=== PATIENT | female | born 1970 | race Hispanic/Latino ===

== ENCOUNTER 2017-02-15 00:24 | Emergency (ER) | payer SELFPAY ==
--- NOTE | 2017-02-15 03:13 | Emergency Department Report ---
ED Extremity Problem HPI - General Chief complaint: Pain General Stated complaint: FOOT PAIN Time Seen by Provider: 02/15/17 03:13 Source: patient, EMS Mode of arrival: Ambulatory Limitations: No Limitations, Other - History of Present Illness Initial comments: 46-year-old female past medical history hypertension, peripheral neuropathy presents with complaint of chronic bilateral foot neuropathy and request for prescription for foot fungus. Patient is awake alert and oriented 3 appears somewhat disheveled. she is lucid and asking for food upon interview. Patient states that she does not currently have a primary care doctor and just moved to the area. Patient is requesting that I give her all medicines in hand because she does not have money at this time. States she stands on her feet for prolonged periods of time MD Complaint: extremity pain -: year(s) Location: bilateral lower extremity Radiation: none Quality: burning Consistency: constant Improves with: nothing Worsens with: nothing Associated Symptoms: denies other symptoms - Related Data Previous Rx's Medication Instructions Recorded Last Taken Type Ibuprofen [Motrin] 800 mg PO Q8HR PRN #30 tablet 02/15/17 Unknown Rx Menthol [Gold Lora Medicated Foot] 283 gm TP QDAY #1 powder 02/15/17 Unknown Rx Tolnaftate [Tinactin] 150 gm TP QDAY #1 spray 02/15/17 Unknown Rx Allergies Allergy/AdvReac Type Severity Reaction Status Date / Time No Known Allergies Allergy Unverified 02/15/17 00:57 ED Review of Systems ROS: Stated complaint: FOOT PAIN Other details as noted in HPI Constitutional: denies: chills, fever Eyes: denies: eye pain, eye discharge, vision change ENT: denies: ear pain, throat pain Respiratory: denies: cough, shortness of breath, wheezing Cardiovascular: denies: chest pain, palpitations Endocrine: no symptoms reported Gastrointestinal: denies: abdominal pain, nausea, diarrhea Genitourinary: denies: urgency, dysuria, discharge Musculoskeletal: denies: back pain, joint swelling, arthralgia Skin: denies: rash, lesions Neurological: denies: headache, weakness, paresthesias Psychiatric: denies: anxiety, depression Hematological/Lymphatic: denies: easy bleeding, easy bruising ED Past Medical Hx - Past Medical History Previous Medical History?: Yes Hx Diabetes: Yes Additional medical history: diabetic neuropathy - Surgical History Past Surgical History?: No - Social History Smoking Status: Never Smoker Substance Use Type: None - Medications Home Medications: Home Medications Medication Instructions Recorded Confirmed Last Taken Type Ibuprofen [Motrin] 800 mg PO Q8HR PRN #30 tablet 02/15/17 Unknown Rx Menthol [Gold Lora Medicated Foot] 283 gm TP QDAY #1 powder 02/15/17 Unknown Rx Tolnaftate [Tinactin] 150 gm TP QDAY #1 spray 02/15/17 Unknown Rx ED Physical Exam - General Limitations: No Limitations, Other General appearance: alert, in no apparent distress - Head Head exam: Present: atraumatic, normocephalic - Eye Eye exam: Present: normal appearance, PERRL, EOMI - ENT ENT exam: Present: mucous membranes moist - Neck Neck exam: Present: normal inspection - Respiratory Respiratory exam: Present: normal lung sounds bilaterally. Absent: respiratory distress - Cardiovascular Cardiovascular Exam: Present: regular rate, normal rhythm. Absent: systolic murmur, diastolic murmur, rubs, gallop - GI/Abdominal GI/Abdominal exam: Present: soft, normal bowel sounds - Extremities Exam Extremities exam: Present: normal inspection, normal capillary refill (b/l LE pulses intact) - Back Exam Back exam: Present: normal inspection - Neurological Exam Neurological exam: Present: alert, oriented X3, CN II-XII intact, normal gait - Psychiatric Psychiatric exam: Present: normal affect, normal mood - Skin Skin exam: Present: warm, dry, intact, normal color. Absent: rash ED Course Vital Signs 02/15/17 02/15/17 01:00 03:59 Temperature 98.4 F Pulse Rate 96 H 107 H Respiratory 18 16 Rate Blood Pressure 116/74 Blood Pressure 120/61 [Right] O2 Sat by Pulse 99 100 Oximetry ED Medical Decision Making - Medical Decision Making A/P: Chronic bilateral foot pain, chronic neuropathy, bunions, plantar fasciitis , athlete's foot 1-Motrin 800mg when necessary 2-Tinactin spray 3-follow-up with primary care and podiatry 4- Critical care attestation.: If time is entered above; I have spent that time in minutes in the direct care of this critically ill patient, excluding procedure time. ED Disposition Clinical Impression: Peripheral neuropathic pain Tinea pedis Qualifiers: Laterality: bilateral Qualified Code(s): B35.3 - Tinea pedis Chronic foot pain Qualifiers: Laterality: unspecified laterality Qualified Code(s): M79.673 - Pain in unspecified foot Disposition: TO HOME OR SELFCARE Is pt being admited?: No Does the pt Need Aspirin: No Condition: Stable Instructions: Tinea Pedis (ED), Plantar Fasciitis (ED), Diabetic Neuropathy (ED ), Peripheral Neuropathy (ED) Prescriptions: Ibuprofen [Motrin] 800 mg PO Q8HR PRN #30 tablet PRN Reason: Pain Menthol [Gold Lora Medicated Foot] 283 gm TP QDAY #1 powder Tolnaftate [Tinactin] 150 gm TP QDAY #1 spray Referrals: [facility] [place] [Outside] - 3-5 Days [facility] [Outside] - 3-5 Days TIANA BURTON DPM [Staff Physician] - 3-5 Days Time of Disposition: 03:30
[2017-02-15] MEDS ORDERED: MOTRIN PO ONE (03:29)
[2017-02-15 04:00] VITALS: BP 120/61
== END 2017-02-15 04:09 | disposition home or self-care (01) ==
LOC: ED 00:24
DX: G62.89 Other specified polyneuropathies (principal); B35.3 Tinea pedis; M79.671 Pain in right foot; M79.672 Pain in left foot; G89.29 Other chronic pain; E11.40 Type 2 diabetes mellitus with diabetic neuropathy, unspecified
CPT/HCPCS: 99283

== ENCOUNTER 2017-02-15 21:45 | Emergency (ER) | payer SELFPAY ==
[2017-02-16 00:32] VITALS: BP 127/71
[2017-02-16 00:46] LABS: Basophils % (Auto) 0.6 % (0.0-1.8); Hemoglobin 12.9 gm/dl (10.1-14.3); Mean Corpuscular HGB Conc 33 % (30-34); Mean Corpuscular Hemoglobin 30 pg (28-32); Mean Corpuscular Volume 91 fl (79-97); Platelet Count 201 K/mm3 (140-440); Red Blood Count 4.27 M/mm3 (3.65-5.03); Red Cell Distribution Width 13.8 % (13.2-15.2); White Blood Count 5.5 K/mm3 (4.5-11.0)
[2017-02-16 00:58] LABS: Anion Gap 16 mmol/L; BUN/Creatinine Ratio 25; Blood Urea Nitrogen 10 mg/dL (7-17); Calcium 8.8 mg/dL (8.4-10.2); Carbon Dioxide 25 mmol/L (22-30); Glucose 135 mg/dL (65-100); Potassium 4.2 mmol/L (3.6-5.0); Sodium 140 mmol/L (137-145)
[2017-02-16 01:09] LABS: Alanine Aminotransferase 15 units/L (7-56); Albumin/Globulin Ratio 1.3 %; Alkaline Phosphatase 79 units/L (35-129); Anion Gap 22 mmol/L; BUN/Creatinine Ratio 28; Bilirubin,Total < 0.20 mg/dL (0.1-1.2); Blood Urea Nitrogen 11 mg/dL (7-17); Carbon Dioxide 26 mmol/L (22-30); Chloride 93.3 mmol/L (98-107); Glucose 133 mg/dL (65-100); Lipase 63 units/L (13-60); Potassium 4.1 mmol/L (3.6-5.0); Sodium 137 mmol/L (137-145)
[2017-02-16 13:27] LABS: Urine Drugs of Abuse Note Disclamer
[2017-02-16 13:37] LABS: Bacteria,Urine 1+ /HPF (Negative); Bilirubin,Urine NEG (Negative); Blood,Urine NEG (Negative); Ketones,Urine NEG (Negative); Leukocyte Esterase,Urine NEG (Negative); Nitrite,Urine NEG (Negative); Protein,Urine <15 mg/dL mg/dL (Negative); Urobilinogen,Urine < 2.0 mg/dL (<2.0)
[2017-02-16] MEDS ORDERED: ZOFRAN ODT PO ONE (14:40)
[2017-02-16] MEDS ORDERED: BACTRIM DS PO ONE (14:40)
--- NOTE | 2017-02-16 14:40 | Emergency Department Report ---
HPI - General Chief Complaint: Abdominal Pain Time Seen by Provider: 02/16/17 14:18 - HPI HPI: Patient is a 46-year-old female who presents to ED complaining of nausea and lower pelvic pain 3 days. Patient denies radiation of the abdominal pain. She denies vomiting or diarrhea. She denies vaginal bleeding, discharge She denies fevers/chills/chest pain/shortness of breath/dizziness/headache HI/ SI. ED Past Medical Hx - Past Medical History Previous Medical History?: Yes Hx Diabetes: Yes Additional medical history: diabetic neuropathy - Social History Smoking Status: Never Smoker - Medications Home Medications: Home Medications Medication Instructions Recorded Confirmed Last Taken Type Menthol [Gold Lora Medicated Foot] 283 gm TP QDAY #1 powder 02/15/17 Unknown Rx Tolnaftate [Tinactin] 150 gm TP QDAY #1 spray 02/15/17 Unknown Rx Ibuprofen [Motrin 800 MG tab] 800 mg PO Q8HR PRN #20 tablet 02/16/17 Unknown Rx Ondansetron [Zofran ODT TAB] 8 mg PO Q8H #20 tab.rapdis 02/16/17 Unknown Rx Sulfamethoxazole/Trimethoprim 1 each PO BID #14 tablet 02/16/17 Unknown Rx [Bactrim DS TAB] ED Review of Systems ROS: Stated complaint: MEDICAL CLEAR. Other details as noted in HPI Constitutional: denies: chills, fever Eyes: denies: eye pain, eye discharge, vision change ENT: denies: ear pain, throat pain Respiratory: denies: cough, shortness of breath, wheezing Cardiovascular: denies: chest pain, palpitations Endocrine: no symptoms reported Gastrointestinal: denies: abdominal pain, nausea, diarrhea Genitourinary: denies: urgency, dysuria, discharge Musculoskeletal: denies: back pain, joint swelling, arthralgia Skin: denies: rash, lesions Neurological: denies: headache, weakness, paresthesias Psychiatric: denies: anxiety, depression Hematological/Lymphatic: denies: easy bleeding, easy bruising Physical Exam - Physical Exam Vital Signs: Vital Signs 02/16/17 00:29 Temperature 98.9 F Pulse Rate 105 H Respiratory 16 Rate Blood Pressure 127/71 O2 Sat by Pulse 100 Oximetry Physical Exam: GENERAL: Alert and oriented x3, no apparent distress, Normal Gait, atraumatic. HEAD: Head is normocephalic and a-traumatic. LUNGS: Symetrical with respiration, No wheezing, no rales or crackles, CTAB. HEART: S1, S2 present, regular rate and rhythm without murmur, no rubs, no gallops. Non tender to palpation ABDOMEN: No organomegaly was noted,Positive bowel sounds, soft, and non- distended. . Nontender to palpation on all Quadrants, NO CVA tenderness. BACK: Full range of motion, no spinal tenderness, nontender to palpation. PSYCHIATRIC: Mood is congruent with affect, denies suicidal or homicidal ideations. SKIN: Warm and dry, No lesions, No ulceration or induration present. ED Course Vital Signs 02/16/17 00:29 Temperature 98.9 F Pulse Rate 105 H Respiratory 16 Rate Blood Pressure 127/71 O2 Sat by Pulse 100 Oximetry ED Medical Decision Making - Lab Data Result diagrams: 02/16/17 00:32 02/16/17 00:32 - Medical Decision Making 6-year-old female presents with UTI CBC, CMP, urinalysis ordered. Urinalysis positive for bacteria I discussed this findings with the patient. I discussed the patient's she takes oral antibiotics as prescribed and follow up with primary care physician. Vital signs are normalized patient is in no acute distress and can be discharged home. Patient was assessed by social work who cleared her for transportation to home. Critical care attestation.: If time is entered above; I have spent that time in minutes in the direct care of this critically ill patient, excluding procedure time. ED Disposition Clinical Impression: UTI (urinary tract infection) Qualifiers: Urinary tract infection type: acute cystitis Hematuria presence: without hematuria Qualified Code(s): N30.00 - Acute cystitis without hematuria Disposition: - TO HOME OR SELFCARE Is pt being admited?: No Does the pt Need Aspirin: No Condition: Stable Instructions: Urinary Tract Infection in Women (ED), Abdominal Pain (ED) Additional Instructions: Taking her medication as prescribed Follow-up with primary care physician. Prescriptions: Ibuprofen [Motrin 800 MG tab] 800 mg PO Q8HR PRN #20 tablet PRN Reason: Pain Ondansetron [Zofran ODT TAB] 8 mg PO Q8H #20 tab.rapdis Sulfamethoxazole/Trimethoprim [Bactrim DS TAB] 1 each PO BID #14 tablet Referrals: PRIMARY CARE, [Primary Care Provider] - 3-[address] [facility] [Outside] - 3-5 Days [facility] [Outside] - 3-5 Days Forms: Work/School Release Form(ED) Time of Disposition: 14:45
== END 2017-02-16 15:29 | disposition home or self-care (01) ==
LOC: ED 21:45
DX: N30.00 Acute cystitis without hematuria (principal); E11.40 Type 2 diabetes mellitus with diabetic neuropathy, unspecified; Z88.8 Allergy status to other drugs, medicaments and biological substances
CPT/HCPCS: 36415; 80048; 80053; 80307; 81001; 81025; 83690; 85025; 99283; G0480; 80320; Q0162

== ENCOUNTER 2017-02-16 20:48 | Emergency (ER) | payer OTHER ==
[2017-02-16 21:55] VITALS: BP 125/98
[2017-02-16] MEDS ORDERED: NACL 0.9% 500 ML 500 ML IV ONE (22:17)
--- NOTE | 2017-02-17 07:20 | XRay Report ---
Single view chest: History: Possible sepsis. Findings: Normal cardiomediastinal silhouette the trachea is midline. No consolidation, pneumothorax or pleural effusion. 3 mm nodule identified at the right lower chest probably calcified or noncalcified granuloma.. Impression: 3 mm nodule right lower chest. CT scan recommended to exclude additional nodules.
== END 2017-02-16 23:21 | disposition left against medical advice (07) ==
LOC: ED 20:48
DX: J00 Acute nasopharyngitis [common cold] (principal); Z53.21 Procedure and treatment not carried out due to patient leaving prior to being seen by health care provider
CPT/HCPCS: 71010; 87086

== ENCOUNTER 2017-02-17 22:50 | Emergency (ER) | payer OTHER ==
[2017-02-18] MEDS ORDERED: ASPIRIN PO ONE (10:20)
--- NOTE | 2017-02-18 11:04 | XRay Report ---
AP CHEST: HISTORY: Hypertension AP view of the chest demonstrates a normal mediastinal and cardiac contour with clear lungs and normal bony and soft tissue structures. IMPRESSION: Unremarkable AP chest.
[2017-02-18 11:13] LABS: Basophils % (Auto) 0.7 % (0.0-1.8); Eosinophils % (Auto) 5.1 % (0.0-4.3); Hematocrit 41.4 % (30.3-42.9); Hemoglobin 13.3 gm/dl (10.1-14.3); Mean Corpuscular HGB Conc 32 % (30-34); Mean Corpuscular Hemoglobin 30 pg (28-32); Mean Corpuscular Volume 94 fl (79-97); Red Blood Count 4.42 M/mm3 (3.65-5.03); Red Cell Distribution Width 14.2 % (13.2-15.2)
--- NOTE | 2017-02-18 11:14 | Emergency Department Report ---
ED General Adult HPI - General Chief complaint: Medical Clearance Stated complaint: MEDICAL CLEAR. Time Seen by Provider: 02/18/17 10:11 Source: patient Mode of arrival: Ambulatory Limitations: No Limitations - History of Present Illness Initial comments: This is a patient that has had no medical screening apparently prior to my encounter. The triage note states fever chills and chest cold. Nothing has been ordered. The patient herself also me that she has substernal chest tightness that has been present constantly for 2 weeks. It is nonradiating and nonpleuritic. She states that she has a sore throat. She has overriding of other complaints to include those in the triage note. The patient tells me that she moved to this area 2 weeks ago. It would appear that she is may be homeless. She tells me she has diabetes but is not taking any medicine. She tells me that she had a heart attack in 2001 at 2004 but is not taking any medicine again not even aspirin. -: week(s) Location: chest Radiation: non-radiation Quality: other (states tightness) Consistency: constant Improves with: none Worsens with: none Associated Symptoms: other (nonproductive cough occasional no hemoptysis no leg pain no swelling) Treatments Prior to Arrival: none - Related Data Previous Rx's Medication Instructions Recorded Last Taken Type Menthol [Gold Lora Medicated Foot] 283 gm TP QDAY #1 powder 02/15/17 Unknown Rx Tolnaftate [Tinactin] 150 gm TP QDAY #1 spray 02/15/17 Unknown Rx Ibuprofen [Motrin 800 MG tab] 800 mg PO Q8HR PRN #20 tablet 02/16/17 Unknown Rx Ondansetron [Zofran ODT TAB] 8 mg PO Q8H #20 tab.rapdis 02/16/17 Unknown Rx Sulfamethoxazole/Trimethoprim 1 each PO BID #14 tablet 02/16/17 Unknown Rx [Bactrim DS TAB] Allergies Allergy/AdvReac Type Severity Reaction Status Date / Time No Known Allergies Allergy Verified 02/16/17 00:33 ED Review of Systems ROS: Stated complaint: MEDICAL CLEAR. Other details as noted in HPI Constitutional: chills, fever Eyes: denies: eye pain, eye discharge, vision change ENT: denies: ear pain, throat pain Respiratory: cough, shortness of breath. denies: wheezing Cardiovascular: chest pain. denies: palpitations Endocrine: no symptoms reported Gastrointestinal: denies: abdominal pain, nausea, diarrhea Genitourinary: denies: urgency, dysuria, discharge Musculoskeletal: denies: back pain, joint swelling, arthralgia Skin: denies: rash, lesions Neurological: denies: headache, weakness, paresthesias Psychiatric: denies: anxiety, depression Hematological/Lymphatic: denies: easy bleeding, easy bruising ED Past Medical Hx - Past Medical History Previous Medical History?: Yes Hx Diabetes: Yes Additional medical history: diabetic neuropathy - Surgical History Past Surgical History?: No - Social History Smoking Status: Never Smoker Substance Use Type: None - Medications Home Medications: Home Medications Medication Instructions Recorded Confirmed Last Taken Type Menthol [Gold Lora Medicated Foot] 283 gm TP QDAY #1 powder 02/15/17 Unknown Rx Tolnaftate [Tinactin] 150 gm TP QDAY #1 spray 02/15/17 Unknown Rx Ibuprofen [Motrin 800 MG tab] 800 mg PO Q8HR PRN #20 tablet 02/16/17 Unknown Rx Ondansetron [Zofran ODT TAB] 8 mg PO Q8H #20 tab.rapdis 02/16/17 Unknown Rx Sulfamethoxazole/Trimethoprim 1 each PO BID #14 tablet 02/16/17 Unknown Rx [Bactrim DS TAB] ED Physical Exam - General Limitations: No Limitations General appearance: alert, in no apparent distress - Head Head exam: Present: atraumatic, normocephalic - Eye Eye exam: Present: normal appearance - ENT ENT exam: Present: mucous membranes moist - Neck Neck exam: Present: normal inspection - Respiratory Respiratory exam: Present: normal lung sounds bilaterally. Absent: respiratory distress - Cardiovascular Cardiovascular Exam: Present: regular rate, normal rhythm. Absent: systolic murmur, diastolic murmur, rubs, gallop - GI/Abdominal GI/Abdominal exam: Present: soft, normal bowel sounds. Absent: distended, tenderness, guarding, rebound, rigid - Extremities Exam Extremities exam: Present: normal inspection - Back Exam Back exam: Present: normal inspection - Neurological Exam Neurological exam: Present: alert, oriented X3, CN II-XII intact. Absent: motor sensory deficit (she poorly cooperative with exam. Appears to prefer to lay on her side and go sleep) - Psychiatric Psychiatric exam: Present: normal affect, normal mood - Skin Skin exam: Present: warm, dry, intact, normal color. Absent: rash ED Course Vital Signs 02/18/17 02:50 Temperature 97.8 F Pulse Rate 82 Respiratory 16 Rate Blood Pressure 124/64 O2 Sat by Pulse 97 Oximetry - Reevaluation(s) Reevaluation #1: Patient was told that she would require extensive medical screening and not unlikely admission to the hospital. This was ordered. However, when the nurse attempted to do an EKG the patient refused all testing. She had been informed of the risks and benefits. Before I could go back to evaluate this situation she had eloped. 02/18/17 11:14 Critical care attestation.: If time is entered above; I have spent that time in minutes in the direct care of this critically ill patient, excluding procedure time. ED Disposition Clinical Impression: Medical non-compliance Chest pain Qualifiers: Chest pain type: unspecified Qualified Code(s): R07.9 - Chest pain, unspecified Disposition: ELOPED Is pt being admited?: No Does the pt Need Aspirin: No Condition: Stable Instructions: Chest Pain (ED) Referrals: PRIMARY CARE, [Primary Care Provider] - 3-5 Days Time of Disposition: 11:16
[2017-02-18 11:23] LABS: INR 0.85 (0.87-1.13)
[2017-02-18 11:27] LABS: Platelet Count 174 K/mm3 (140-440)
[2017-02-18 11:28] VITALS: BP 127/78
[2017-02-18 11:31] LABS: Creatine Kinase MB 6.3 ng/mL (0.0-4.0)
[2017-02-18 11:34] LABS: Alanine Aminotransferase 17 units/L (7-56); Albumin 3.8 g/dL (3.9-5); Albumin/Globulin Ratio 1.2 %; Alkaline Phosphatase 83 units/L (35-129); Anion Gap 20 mmol/L; BUN/Creatinine Ratio 18; Blood Urea Nitrogen 9 mg/dL (7-17); Calcium 9.2 mg/dL (8.4-10.2); Carbon Dioxide 22 mmol/L (22-30); Creatine Kinase 194 units/L (30-135); Glucose 119 mg/dL (65-100); Potassium 4.8 mmol/L (3.6-5.0); Sodium 137 mmol/L (137-145); Total Protein 6.9 g/dL (6.3-8.2)
[2017-02-18 11:38] LABS: Bilirubin,Direct < 0.2 mg/dL (0-0.2)
== END 2017-02-18 11:02 | disposition left against medical advice (07) ==
LOC: ED 22:50
DX: R07.89 Other chest pain (principal); Z91.19 Patient's noncompliance with other medical treatment and regimen; E11.40 Type 2 diabetes mellitus with diabetic neuropathy, unspecified
CPT/HCPCS: 36415; 71010; 80048; 80074; 82010; 82550; 82553; 83880; 84484; 85025; 85610; 85730; 99284

== ENCOUNTER 2017-02-20 01:42 | Emergency (ER) | payer SELFPAY ==
[2017-02-20 02:09] VITALS: BP 130/77
[2017-02-20 04:30] LABS: Basophils % (Auto) 0.5 % (0.0-1.8); Eosinophils % (Auto) 4.9 % (0.0-4.3); Hematocrit 38.7 % (30.3-42.9); Hemoglobin 13.1 gm/dl (10.1-14.3); Mean Corpuscular HGB Conc 34 % (30-34); Mean Corpuscular Hemoglobin 31 pg (28-32); Mean Corpuscular Volume 93 fl (79-97); Platelet Count 177 K/mm3 (140-440); Red Blood Count 4.18 M/mm3 (3.65-5.03); Red Cell Distribution Width 13.8 % (13.2-15.2); White Blood Count 4.4 K/mm3 (4.5-11.0)
[2017-02-20 05:09] LABS: Anion Gap 23 mmol/L; BUN/Creatinine Ratio 20; Blood Urea Nitrogen 10 mg/dL (7-17); Calcium 9.1 mg/dL (8.4-10.2); Carbon Dioxide 23 mmol/L (22-30); Glucose 294 mg/dL (65-100); Potassium 4.5 mmol/L (3.6-5.0); Sodium 143 mmol/L (137-145)
[2017-02-20 08:38] LABS: Bacteria,Urine 1+ /HPF (Negative); Bilirubin,Urine NEG (Negative); Blood,Urine LG (Negative); Ketones,Urine NEG (Negative); Leukocyte Esterase,Urine NEG (Negative); Mucus,Urine FEW /HPF; Nitrite,Urine NEG (Negative); Protein,Urine <15 mg/dL mg/dL (Negative); Urobilinogen,Urine < 2.0 mg/dL (<2.0)
--- NOTE | 2017-02-20 11:24 | Emergency Department Report ---
ED General Adult HPI - General Chief complaint: Urogenital-Female Stated complaint: N/V/D Time Seen by Provider: 02/20/17 11:09 Source: patient, RN notes reviewed, old records reviewed Mode of arrival: Ambulatory Limitations: No Limitations - History of Present Illness Initial comments: This is a 46-year-old female. The patient is previously unknown to this provider. She presents to the ER with a complaint of left toe fungus. This is been going on for a while. He does not have exacerbating or relieving factors. She also describes epigastric discomfort, nausea and vomiting. She reports vomiting 90 minutes prior to my evaluation. The nursing staff who is currently taking care of her indicates that she's been sleeping, that she does not vomited once. She also admitted to chest pressure. The chest pressure has been present for over the past few weeks. It does not radiate anywhere. He has no exacerbating or relieving factors. It has no qualifying factors that she can describe. -: Gradual Location: chest, abdomen Consistency: intermittent Improves with: none Worsens with: none Associated Symptoms: denies other symptoms - Related Data Previous Rx's Medication Instructions Recorded Last Taken Type Menthol [Gold Lora Medicated Foot] 283 gm TP QDAY #1 powder 02/15/17 Unknown Rx Tolnaftate [Tinactin] 150 gm TP QDAY #1 spray 02/15/17 Unknown Rx Ibuprofen [Motrin 800 MG tab] 800 mg PO Q8HR PRN #20 tablet 02/16/17 Unknown Rx Ondansetron [Zofran ODT TAB] 8 mg PO Q8H #20 tab.rapdis 02/16/17 Unknown Rx Sulfamethoxazole/Trimethoprim 1 each PO BID #14 tablet 02/16/17 Unknown Rx [Bactrim DS TAB] Allergies Allergy/AdvReac Type Severity Reaction Status Date / Time phenobarbital Allergy Hives Verified 02/20/17 02:09 ED Review of Systems ROS: Stated complaint: N/V/D Other details as noted in HPI Constitutional: denies: fever Eyes: denies: eye discharge ENT: denies: epistaxis Respiratory: denies: wheezing Cardiovascular: chest pain Gastrointestinal: abdominal pain Genitourinary: denies: dysuria Skin: lesions Neurological: weakness Psychiatric: denies: homicidal thoughts, suicidal thoughts ED Past Medical Hx - Past Medical History Hx Diabetes: Yes Additional medical history: diabetic neuropathy - Social History Smoking Status: Never Smoker Substance Use Type: None - Medications Home Medications: Home Medications Medication Instructions Recorded Confirmed Last Taken Type Menthol [Gold Lora Medicated Foot] 283 gm TP QDAY #1 powder 02/15/17 Unknown Rx Tolnaftate [Tinactin] 150 gm TP QDAY #1 spray 02/15/17 Unknown Rx Ibuprofen [Motrin 800 MG tab] 800 mg PO Q8HR PRN #20 tablet 02/16/17 Unknown Rx Ondansetron [Zofran ODT TAB] 8 mg PO Q8H #20 tab.rapdis 02/16/17 Unknown Rx Sulfamethoxazole/Trimethoprim 1 each PO BID #14 tablet 02/16/17 Unknown Rx [Bactrim DS TAB] ED Physical Exam - General Limitations: No Limitations General appearance: alert, in no apparent distress - Head Head exam: Present: atraumatic, normocephalic - Eye Eye exam: Present: normal appearance, EOMI. Absent: nystagmus - ENT ENT exam: Present: normal exam, normal orophraynx, mucous membranes moist, normal external ear exam - Neck Neck exam: Present: normal inspection, full ROM. Absent: tenderness, meningismus - Respiratory Respiratory exam: Present: normal lung sounds bilaterally. Absent: respiratory distress, chest wall tenderness - Cardiovascular Cardiovascular Exam: Present: regular rate, normal rhythm, normal heart sounds. Absent: bradycardia, tachycardia, irregular rhythm, systolic murmur, diastolic murmur, rubs, gallop - GI/Abdominal GI/Abdominal exam: Present: soft, normal bowel sounds. Absent: distended, tenderness, guarding, rebound, rigid, pulsatile mass - Extremities Exam Extremities exam: Present: normal inspection, full ROM, normal capillary refill. Absent: pedal edema, joint swelling, calf tenderness - Back Exam Back exam: Present: normal inspection, full ROM. Absent: tenderness, CVA tenderness (R), CVA tenderness (L), muscle spasm, paraspinal tenderness, vertebral tenderness - Neurological Exam Neurological exam: Present: alert, oriented X3, normal gait, other (Extraocular movements intact. Tongue midline. No facial droop. Facial sensation intact to light touch in the V1, V2, V3 distribution bilaterally. 5 and 5 strength in 4 extremities.. Sensation is intact to light touch in 4 extremities.). Absent : motor sensory deficit - Psychiatric Psychiatric exam: Present: normal affect, normal mood. Absent: homicidal ideation, suicidal ideation - Skin Skin exam: Present: warm, dry, intact, normal color. Absent: rash ED Course Vital Signs 02/20/17 02/20/17 01:58 02:04 Temperature 97.6 F 97.6 F Pulse Rate 96 H 91 H Respiratory 18 18 Rate Blood Pressure 130/77 130/77 O2 Sat by Pulse 100 100 Oximetry ED Medical Decision Making - Lab Data Result diagrams: 02/20/17 04:12 02/20/17 04:12 Vital Signs 02/20/17 02/20/17 01:58 02:04 Temperature 97.6 F 97.6 F Pulse Rate 96 H 91 H Respiratory 18 18 Rate Blood Pressure 130/77 130/77 O2 Sat by Pulse 100 100 Oximetry Labs 02/20/17 02/20/17 02/20/17 04:12 04:12 07:28 WBC 4.4 L RBC 4.18 Hgb 13.1 Hct 38.7 MCV 93 MCH 31 MCHC 34 RDW 13.8 Plt Count 177 Lymph % (Auto) 34.8 [place] % (Auto) 8.2 H Eos % (Auto) 4.9 H Baso % (Auto) 0.5 Lymph # 1.5 [place] # 0.4 Eos # 0.2 Baso # 0.0 Seg Neutrophils % 51.6 Seg Neutrophils # 2.2 Sodium 143 Potassium 4.5 Chloride 102.0 Carbon Dioxide 23 Anion Gap 23 BUN 10 Creatinine 0.5 L Estimated GFR > 60 BUN/Creatinine Ratio 20 Glucose 294 H Calcium 9.1 Urine Color Red Urine Turbidity Clear Urine pH 7.0 Ur Specific [place] 1.005 Urine Protein <15 mg/dl Urine Glucose (UA) Neg Urine Ketones Neg Urine Blood Lg Urine Nitrite Neg Urine Bilirubin Neg Urine Urobilinogen < 2.0 Ur Leukocyte Esterase Neg Urine WBC (Auto) 1.0 Urine RBC (Auto) 4.0 U Epithel Cells (Auto) 1.0 Urine Bacteria (Auto) 1+ Urine Mucus Few Urine HCG, Qual 02/20/17 07:28 WBC RBC Hgb Hct MCV MCH MCHC RDW Plt Count Lymph % (Auto) [place] % (Auto) Eos % (Auto) Baso % (Auto) Lymph # [place] # Eos # Baso # Seg Neutrophils % Seg Neutrophils # Sodium Potassium Chloride Carbon Dioxide Anion Gap BUN Creatinine Estimated GFR BUN/Creatinine Ratio Glucose Calcium Urine Color Urine Turbidity Urine pH Ur Specific [place] Urine Protein Urine Glucose (UA) Urine Ketones Urine Blood Urine Nitrite Urine Bilirubin Urine Urobilinogen Ur Leukocyte Esterase Urine WBC (Auto) Urine RBC (Auto) U Epithel Cells (Auto) Urine Bacteria (Auto) Urine Mucus Urine HCG, Qual Negative - Medical Decision Making If her menstrual diagnosis, including but not limited to: Urinary tract infection, acute coronary syndrome, costochondritis, GERD, gastritis, malingering Assessment and plan: 46-year-old female with multiple nonspecific complaints. When I walk into the room, the patient is sleeping and not actively vomiting and is in no distress. As per the craft center director who is taking care of her, Kaci MoseleyMoniquepetra Holguin, he has been sleeping for hours with no distress. In reviewing her old medical records, she has been seen for multiple nonspecific complaints over the past week. She presented a few days ago with lower abdominal pain and pelvic pain, but no irritative urinary symptoms, and had a urinalysis that demonstrated 1+ bacteria, with a negative culture and was prescribed Bactrim. Patient did make a comment about wanting her Bactrim filled, but I informed the patient that she did not need it. On review of systems, the patient did endorse chest pain over the past few weeks. It was nonspecific. In reviewing her old charts, I saw that Dr. Brian recommended admission for acute coronary syndrome risk stratification. I also recommended this to the patient given her lack of close follow-up but she refused. The patient is alert and oriented 3, is free from distracting injury, and exhibits decision-making capacity. The risks of leaving, including , disability, paralysis, loss of quality of life, patient was able to articulate these in her own words, and was free from distracting injury. I recommended an EKG, troponin, hospital admission, and chest x-ray, all of which the patient initially agreed to, and then subsequently refused. She signed out AGAINST MEDICAL ADVICE. This conversation was witnessed by craft center director MONIQUE HOLGUIN The patient eloped from the emergency room before being able to get her paperwork Critical care attestation.: If time is entered above; I have spent that time in minutes in the direct care of this critically ill patient, excluding procedure time. ED Disposition Clinical Impression: Abdominal pain Qualifiers: Abdominal location: generalized Qualified Code(s): R10.84 - Generalized abdominal pain Disposition: DC-07 LEFT AGAINST MED ADVICE Is pt being admited?: No Does the pt Need Aspirin: No Condition: Undetermined Referrals: PRIMARY CARE, [Primary Care Provider] - 3-5 Days Forms: AMA Form
== END 2017-02-20 11:45 | disposition left against medical advice (07) ==
LOC: ED 01:42
DX: R10.84 Generalized abdominal pain (principal); R11.2 Nausea with vomiting, unspecified; R07.89 Other chest pain; E11.9 Type 2 diabetes mellitus without complications; Z88.8 Allergy status to other drugs, medicaments and biological substances
CPT/HCPCS: 36415; 80048; 81001; 81025; 85025

== ENCOUNTER 2017-02-22 21:55 | Emergency (ER) | payer SELFPAY ==
[2017-02-23 00:58] LABS: Basophils % (Auto) 0.8 % (0.0-1.8); Eosinophils % (Auto) 3.6 % (0.0-4.3); Hematocrit 36.4 % (30.3-42.9); Hemoglobin 12.2 gm/dl (10.1-14.3); Mean Corpuscular HGB Conc 34 % (30-34); Mean Corpuscular Hemoglobin 31 pg (28-32); Mean Corpuscular Volume 91 fl (79-97); Platelet Count 227 K/mm3 (140-440); Red Blood Count 3.99 M/mm3 (3.65-5.03); Red Cell Distribution Width 13.7 % (13.2-15.2); White Blood Count 5.9 K/mm3 (4.5-11.0)
[2017-02-23 01:13] LABS: Alanine Aminotransferase 15 units/L (7-56); Albumin 3.8 g/dL (3.9-5); Albumin/Globulin Ratio 1.2 %; Alkaline Phosphatase 76 units/L (35-129); Anion Gap 18 mmol/L; BUN/Creatinine Ratio 38; Blood Urea Nitrogen 15 mg/dL (7-17); Calcium 8.9 mg/dL (8.4-10.2); Carbon Dioxide 25 mmol/L (22-30); Chloride 99.2 mmol/L (98-107); Glucose 189 mg/dL (65-100); Lipase 73 units/L (13-60); Potassium 4.1 mmol/L (3.6-5.0); Sodium 138 mmol/L (137-145); Total Protein 6.9 g/dL (6.3-8.2)
[2017-02-23 01:48] LABS: Bilirubin,Urine Negative (Negative); Blood,Urine Small (Negative); Ketones,Urine Negative (Negative)
[2017-02-23 01:49] LABS: Leukocyte Esterase,Urine Negative (Negative); Nitrite,Urine Negative (Negative); Urobilinogen,Urine < 2.0 mg/dL (<2.0)
--- NOTE | 2017-02-23 06:31 | Emergency Department Report ---
ED General Adult HPI - General Chief complaint: Abdominal Pain Stated complaint: COLD S/S Time Seen by Provider: 02/23/17 06:24 Source: patient, RN notes reviewed, old records reviewed Mode of arrival: Ambulatory Limitations: No Limitations - History of Present Illness Initial comments: This is a 46-year-old female. I have evaluated this patient in the past. Please see the previous details from my prior history and physical. The patient is 46, and presents to the ER with complaint of runny nose and lower abdominal pain. The runny nose has been present for a day or 2. It is intermittent. It has no exacerbating or relieving factors. To me, the patient denies headache. The patient also complains of lower abdominal pain. It is achy in nature. Patient endorses dysuria. She denies vaginal discharge. She denies nausea and vomiting. To me she denies diarrhea. She denies homicidality and suicidality. On review of systems, she does admit to central chest pain and pressure, which has been present for months. The pain has no radiation. He does not have exacerbating or relieving factors. -: Gradual Location: face, chest, abdomen Radiation: non-radiation Severity scale (0 -10): 3 Quality: aching Consistency: intermittent Improves with: none Worsens with: none Associated Symptoms: chest pain. denies: confusion, loss of appetite, nausea/ vomiting - Related Data Previous Rx's Medication Instructions Recorded Last Taken Type Menthol [Gold Lora Medicated Foot] 283 gm TP QDAY #1 powder 02/15/17 Unknown Rx Tolnaftate [Tinactin] 150 gm TP QDAY #1 spray 02/15/17 Unknown Rx Ibuprofen [Motrin 800 MG tab] 800 mg PO Q8HR PRN #20 tablet 02/16/17 Unknown Rx Ondansetron [Zofran ODT TAB] 8 mg PO Q8H #20 tab.rapdis 02/16/17 Unknown Rx Sulfamethoxazole/Trimethoprim 1 each PO BID #14 tablet 02/16/17 Unknown Rx [Bactrim DS TAB] Allergies Allergy/AdvReac Type Severity Reaction Status Date / Time phenobarbital Allergy Hives Verified 02/20/17 02:09 ED Review of Systems ROS: Stated complaint: COLD S/S Other details as noted in HPI Constitutional: denies: fever Eyes: denies: eye discharge ENT: congestion Respiratory: denies: cough Cardiovascular: chest pain Gastrointestinal: abdominal pain Genitourinary: dysuria Musculoskeletal: as per HPI Skin: as per HPI Psychiatric: denies: homicidal thoughts, suicidal thoughts ED Past Medical Hx - Past Medical History Previous Medical History?: Yes Hx Diabetes: Yes Hx Psychiatric Treatment: Yes (schizophrenia) Additional medical history: diabetic neuropathy - Surgical History Past Surgical History?: Yes Hx Cholecystectomy: Yes Additional Surgical History: Breast CA, Ovarian CA. Left Knee, Brain - Social History Smoking Status: Never Smoker Substance Use Type: None - Medications Home Medications: Home Medications Medication Instructions Recorded Confirmed Last Taken Type Menthol [Gold Lora Medicated Foot] 283 gm TP QDAY #1 powder 02/15/17 Unknown Rx Tolnaftate [Tinactin] 150 gm TP QDAY #1 spray 02/15/17 Unknown Rx Ibuprofen [Motrin 800 MG tab] 800 mg PO Q8HR PRN #20 tablet 02/16/17 Unknown Rx Ondansetron [Zofran ODT TAB] 8 mg PO Q8H #20 tab.rapdis 02/16/17 Unknown Rx Sulfamethoxazole/Trimethoprim 1 each PO BID #14 tablet 02/16/17 Unknown Rx [Bactrim DS TAB] ED Physical Exam - General Limitations: No Limitations General appearance: alert, in no apparent distress - Head Head exam: Present: atraumatic, normocephalic - Eye Eye exam: Present: normal appearance, EOMI - ENT ENT exam: Present: normal exam, normal orophraynx, mucous membranes moist, normal external ear exam, other (rhinorrhea is noted) - Neck Neck exam: Present: normal inspection, full ROM. Absent: tenderness, meningismus - Respiratory Respiratory exam: Present: normal lung sounds bilaterally. Absent: respiratory distress - Cardiovascular Cardiovascular Exam: Present: regular rate, normal rhythm, normal heart sounds. Absent: systolic murmur, diastolic murmur, rubs, gallop - GI/Abdominal GI/Abdominal exam: Present: soft, normal bowel sounds. Absent: distended, tenderness, guarding, rebound, rigid, pulsatile mass - Extremities Exam Extremities exam: Present: normal inspection, full ROM. Absent: calf tenderness - Back Exam Back exam: Present: normal inspection, full ROM. Absent: tenderness, CVA tenderness (R), paraspinal tenderness, vertebral tenderness - Neurological Exam Neurological exam: Present: alert, oriented X3, normal gait, other (Extraocular movements intact. Tongue midline. No facial droop. Facial sensation intact to light touch in the V1, V2, V3 distribution bilaterally. 5 and 5 strength in 4 extremities.. Sensation is intact to light touch in 4 extremities.). Absent : motor sensory deficit - Psychiatric Psychiatric exam: Present: normal affect, normal mood - Skin Skin exam: Present: warm, dry, intact, normal color. Absent: rash ED Course Vital Signs 02/23/17 02/23/17 02/23/17 00:05 06:49 06:50 Temperature 98.5 F Pulse Rate 96 H 91 H 87 Respiratory 18 18 19 Rate Blood Pressure 146/81 Blood Pressure 133/65 [Right] O2 Sat by Pulse 99 99 97 Oximetry 02/23/17 02/23/17 02/23/17 06:52 06:58 07:40 Temperature Pulse Rate 85 81 Respiratory 18 16 16 Rate Blood Pressure 146/81 Blood Pressure 154/96 [Right] O2 Sat by Pulse 98 99 Oximetry 02/23/17 10:00 Temperature Pulse Rate 111 H Respiratory 18 Rate Blood Pressure Blood Pressure 151/81 [Right] O2 Sat by Pulse 97 Oximetry - Reevaluation(s) Reevaluation #1: 02/23/17 07:10 Differential diagnosis, including but not limited to: Chronic schizophrenia, constipation, urinary tract infection, pneumonia, acute coronary syndrome, pneumonia, costochondritis, GERD, gastritis, viral syndrome Assessment and plan: 46-year-old female with initial complaint of lower abdominal pain and rhinorrhea. I have previously evaluated this patient within the past week. Her abdomen is soft and benign, with no rebound, guarding or peritoneal signs. Her vital signs have remained stable. She is laying comfortable on a stretcher with no active vomiting. I don't see any objective indication to obtain advanced imaging at this time. While the patient endorses irritative symptoms, her urinalysis does not suggest urinary tract infection, and recent cultures were negative. Therefore, I see no indication for antibiotic therapy. The patient denies vaginal discharge. Troponin negative today 1, troponin negative a few days ago, EKG morphologically unremarkable x 2, at this point in time, given multiple negative troponins over a few days, negative/unremarkable EKG, inconsistent history, I think it is very unlikely that the patient has unstable angina or acute coronary syndrome, especially as she admits that her chest pain has been present for weeks to months. Therefore, I do not think the patient will benefit from hospitalization for acute coronary syndrome risk stratification, given that her recent triage complaints have included abdominal pain, runny nose , dysuria, and she only admits to chest pain on review of systems but does not have it as a primary complaint. She is alert and oriented 3, walks with a steady gait, Homicidal or Suicidal. She Does Not Require 1013 or Emergent Psychiatric Consultation This Time. 02/23/17 07:12 02/23/17 09:26 02/23/17 09:29 Reevaluation #2: 02/23/17 09:26 Patient is sleeping. EKG is unremarkable and unchanged from prior, x-ray of the chest demonstrates no acute disease, chronic findings. ED Medical Decision Making - Lab Data Result diagrams: 02/23/17 00:31 02/23/17 00:31 Vital Signs 02/23/17 02/23/17 02/23/17 00:05 06:49 06:50 Temperature 98.5 F Pulse Rate 96 H 91 H 87 Respiratory 18 18 19 Rate Blood Pressure 146/81 Blood Pressure 133/65 [Right] O2 Sat by Pulse 99 99 97 Oximetry 02/23/17 02/23/17 06:52 06:58 Temperature Pulse Rate 85 Respiratory 18 16 Rate Blood Pressure 146/81 Blood Pressure [Right] O2 Sat by Pulse 98 Oximetry Lab Results 02/23/17 02/23/17 02/23/17 Range/Units 00:31 00:31 00:46 WBC 5.9 (4.5-11.0) K/mm3 RBC 3.99 (3.65-5.03) M/mm3 Hgb 12.2 (10.1-14.3) gm/dl Hct 36.4 (30.3-42.9) % MCV 91 (79-97) fl MCH 31 (28-32) pg MCHC 34 (30-34) % RDW 13.7 (13.2-15.2) % Plt Count 227 (140-440) K/mm3 Lymph % (Auto) 31.1 (13.4-35.0) % [place] % (Auto) 5.3 (0.0-7.3) % Eos % (Auto) 3.6 (0.0-4.3) % Baso % (Auto) 0.8 (0.0-1.8) % Lymph # 1.9 (1.2-5.4) K/mm3 [place] # 0.3 (0.0-0.8) K/mm3 Eos # 0.2 (0.0-0.4) K/mm3 Baso # 0.0 (0.0-0.1) K/mm3 Seg Neutrophils % 59.2 (40.0-70.0) % Seg Neutrophils # 3.5 (1.8-7.7) K/mm3 Sodium 138 (137-145) mmol/L Potassium 4.1 (3.6-5.0) mmol/L Chloride 99.2 (98-107) mmol/L Carbon Dioxide 25 (22-30) mmol/L Anion Gap 18 mmol/L BUN 15 (7-17) mg/dL Creatinine 0.4 L (0.7-1.2) mg/dL Estimated GFR > 60 ml/min BUN/Creatinine Ratio 38 % Glucose 189 H (65-100) mg/dL Calcium 8.9 (8.4-10.2) mg/dL Total Bilirubin 0.20 (0.1-1.2) mg/dL AST 16 (5-40) units/L ALT 15 (7-56) units/L Alkaline Phosphatase 76 (35-129) units/L Total Protein 6.9 (6.3-8.2) g/dL Albumin 3.8 L (3.9-5) g/dL Albumin/Globulin Ratio 1.2 % Lipase 73 H (13-60) units/L Urine Color Yellow (Yellow) Urine Turbidity Clear (Clear) Urine pH 7.0 (5.0-7.0) Ur Specific [place] 1.010 (1.003-1.030) Urine Protein 30 mg/dl (Negative) mg/dL Urine Glucose (UA) Negative (Negative) mg/dL Urine Ketones Negative (Negative) mg/dL Urine Blood Small A (Negative) Urine Nitrite Negative (Negative) Ur Reducing Substances Not Reportable Urine Bilirubin Negative (Negative) Urine Ictotest Not Reportable Urine Urobilinogen < 2.0 (<2.0) mg/dL Ur Leukocyte Esterase Negative (Negative) Urine WBC (Auto) 1.0 (0.0-6.0) /HPF Urine RBC (Auto) 4.0 (0.0-6.0) /HPF U Epithel Cells (Auto) 5.0 (0-13.0) /HPF Urine HCG, Qual (Negative) 02/23/17 Range/Units 00:46 WBC (4.5-11.0) K/mm3 RBC (3.65-5.03) M/mm3 Hgb (10.1-14.3) gm/dl Hct (30.3-42.9) % MCV (79-97) fl MCH (28-32) pg MCHC (30-34) % RDW (13.2-15.2) % Plt Count (140-440) K/mm3 Lymph % (Auto) (13.4-35.0) % [place] % (Auto) (0.0-7.3) % Eos % (Auto) (0.0-4.3) % Baso % (Auto) (0.0-1.8) % Lymph # (1.2-5.4) K/mm3 [place] # (0.0-0.8) K/mm3 Eos # (0.0-0.4) K/mm3 Baso # (0.0-0.1) K/mm3 Seg Neutrophils % (40.0-70.0) % Seg Neutrophils # (1.8-7.7) K/mm3 Sodium (137-145) mmol/L Potassium (3.6-5.0) mmol/L Chloride (98-107) mmol/L Carbon Dioxide (22-30) mmol/L Anion Gap mmol/L BUN (7-17) mg/dL Creatinine (0.7-1.2) mg/dL Estimated GFR ml/min BUN/Creatinine Ratio % Glucose (65-100) mg/dL Calcium (8.4-10.2) mg/dL Total Bilirubin (0.1-1.2) mg/dL AST (5-40) units/L ALT (7-56) units/L Alkaline Phosphatase (35-129) units/L Total Protein (6.3-8.2) g/dL Albumin (3.9-5) g/dL Albumin/Globulin Ratio % Lipase (13-60) units/L Urine Color (Yellow) Urine Turbidity (Clear) Urine pH (5.0-7.0) Ur Specific [place] (1.003-1.030) Urine Protein (Negative) mg/dL Urine Glucose (UA) (Negative) mg/dL Urine Ketones (Negative) mg/dL Urine Blood (Negative) Urine Nitrite (Negative) Ur Reducing Substances Urine Bilirubin (Negative) Urine Ictotest Urine Urobilinogen (<2.0) mg/dL Ur Leukocyte Esterase (Negative) Urine WBC (Auto) (0.0-6.0) /HPF Urine RBC (Auto) (0.0-6.0) /HPF U Epithel Cells (Auto) (0-13.0) /HPF Urine HCG, Qual Negative (Negative) - EKG Data -: EKG Interpreted by Al EKG shows normal: sinus rhythm - EKG Data When compared to previous EKG there are: previous EKG unavailable 02/23/17 07:09 Sinus, 83 bpm, normal axis, normal intervals, not morphologically consistent with ST elevation myocardial infarction, unremarkable EKG. 02/23/17 09:26 EKG #2 is unremarkable and unchanged. - Radiology Data Radiology results: pending, report reviewed, image reviewed X-ray the chest demonstrates no acute disease, old granulomatous disease is noted. Critical care attestation.: If time is entered above; I have spent that time in minutes in the direct care of this critically ill patient, excluding procedure time. ED Disposition Clinical Impression: Abdominal pain, Chest pain Disposition: DC-01 TO HOME OR SELFCARE Is pt being admited?: No Does the pt Need Aspirin: No Condition: Stable Instructions: Chest Pain (ED) Additional Instructions: Follow-up with the primary care doctor within the next 2 weeks. follow up with the pedigree tracer within the next week. Return to the ER right away with new pain, worsened pain, migration of pain, fevers, chills, lethargy, irritability, projectile vomiting, change in mental status, confusion, inability to tolerate liquid feeds. Referrals: PRIMARY CARE, [Primary Care Provider] - 3-5 Days ROSALIE DUEÑAS MD [Staff Physician] - 3-5 Days [facility] [Provider Group] - 3-5 Days [facility] [Provider Group] - 3-5 Days
[2017-02-23] MEDS ORDERED: TYLENOL PO ONE (07:14)
[2017-02-23] MEDS ORDERED: ALUM-MAG HYDROX-SIMETH 200-200-20MG/5ML PO ONE (07:14)
--- NOTE | 2017-02-23 08:05 | XRay Report ---
AP CHEST : 02/22/17 21:55:00 CLINICAL: Chest pain. COMPARISON:02/18/17 FINDINGS: The lungs are slightly underexpanded. Borderline cardiomegaly with redistribution of pulmonary blood flow to the upper lobes. Bilateral calcified hilar granulomata in right lower lobe calcified granulomata. No airspace disease or pleural effusion. The bones and soft tissues are unremarkable. IMPRESSION: Borderline cardiomegaly and pulmonary venous hypertension. No pulmonary edema or pneumonia. Old granulomatous disease.
[2017-02-23 10:01] VITALS: BP 151/81
== END 2017-02-23 10:16 | disposition home or self-care (01) ==
LOC: ED 21:55
DX: R10.9 Unspecified abdominal pain (principal); R07.9 Chest pain, unspecified; E11.9 Type 2 diabetes mellitus without complications
CPT/HCPCS: 36415; 71010; 80053; 81001; 81025; 83690; 84484; 85025; 93005; 93010

== ENCOUNTER 2017-02-23 19:32 | Emergency (ER) | payer SELFPAY ==
[2017-02-23 19:49] VITALS: BP 130/70
[2017-02-23] MEDS ORDERED: ZOFRAN ODT PO ONE (21:08)
[2017-02-23] MEDS ORDERED: TYLENOL PO ONE (21:09)
--- NOTE | 2017-02-23 21:22 | Emergency Department Report ---
HPI - General Chief Complaint: Abdominal Pain Time Seen by Provider: 02/23/17 20:07 - HPI HPI: The patient is a 46 yo female who presents for evaluation of abdominal pain. The patient reports upper abdominal pain on and off for the past 3 months. She states that one hour prior to my evaluation of abdominal pain recurred, has been constant since, 08/10 severity, crampy in quality, exacerbated with eating. She also reports associated nausea without vomiting. The patient denies fever , chills, night sweats, diarrhea, blood in the stool, dark tarry stool, dysuria , hematuria, flank pain, genital discharge, inability to pass flatus. ED Past Medical Hx - Past Medical History Previous Medical History?: Yes Hx Diabetes: Yes Hx Psychiatric Treatment: Yes (schizophrenia) Additional medical history: diabetic neuropathy - Surgical History Past Surgical History?: Yes Hx Cholecystectomy: Yes Additional Surgical History: Breast CA, Ovarian CA. Left Knee, Brain - Social History Smoking Status: Never Smoker Substance Use Type: None - Medications Home Medications: Home Medications Medication Instructions Recorded Confirmed Last Taken Type Menthol [Gold Lora Medicated Foot] 283 gm TP QDAY #1 powder 02/15/17 Unknown Rx Tolnaftate [Tinactin] 150 gm TP QDAY #1 spray 02/15/17 Unknown Rx Ibuprofen [Motrin 800 MG tab] 800 mg PO Q8HR PRN #20 tablet 02/16/17 Unknown Rx Ondansetron [Zofran ODT TAB] 8 mg PO Q8H #20 tab.rapdis 02/16/17 Unknown Rx Sulfamethoxazole/Trimethoprim 1 each PO BID #14 tablet 02/16/17 Unknown Rx [Bactrim DS TAB] Acetaminophen [Tylenol] 1,000 mg PO Q6HR #20 tablet 02/23/17 Unknown Rx Omeprazole Magnesium [PriLOSEC Otc] 20 mg PO QDAY #14 tablet.dr 02/23/17 Unknown Rx Ondansetron [Zofran TAB] 4 mg PO Q8HR PRN #15 tablet 02/23/17 Unknown Rx ED Review of Systems ROS: Stated complaint: ABD PAIN FOR MONTHS Other details as noted in HPI Constitutional: denies: fever ENT: denies: throat or neck pain Respiratory: denies: cough, shortness of breath Cardiovascular: denies: chest pain Endocrine: denies unexplained weight loss or gain Gastrointestinal: reports abdominal pain, nausea Genitourinary: denies: dysuria Musculoskeletal: denies: leg swelling Skin: denies: rash Neurological: denies: headache Hematological/Lymphatic: denies: easy bleeding or easy bruising Psych: denies sadness or hopelessness Physical Exam - Physical Exam Vital Signs: Vital Signs 02/23/17 19:45 Temperature 98.0 F Pulse Rate 88 Respiratory 18 Rate Blood Pressure 130/70 [Right] O2 Sat by Pulse 100 Oximetry Physical Exam: General: well-nourished, well-developed, no acute distress Head: Normocephalic, atraumatic Eyes: normal sclera ENT: Mucous membranes are pink and moist Neck: trachea midline, neck supple, No neck stiffness, no cervical adenopathy Respiratory: Breath sounds equal bilaterally, no wheezing, rales, or rhonchi Cardio: S1 and S2 present, no murmurs, rubs, gallops, capillary refill is brisk Abdomen: Normoactive bowel sounds, soft abdomen, epigastric tenderness, LUQ tenderness, no rigidity, no guarding or rebound tenderness Musc: No pitting edema Skin: No rash Neuro: no facial drooping, normal speech Psych: Normal affect ED Course Vital Signs 02/23/17 19:45 Temperature 98.0 F Pulse Rate 88 Respiratory 18 Rate Blood Pressure 130/70 [Right] O2 Sat by Pulse 100 Oximetry ED Medical Decision Making - Medical Decision Making The patient was seen and examined by myself. The patient is placed on a residential monitor and continuous pulse ox. On initial evaluation, the patient was found to be in no distress. Evaluation orders are placed. Lab results from earlier today were reviewed and were non-concerning including WBC, hemoglobin, hematocrit, electrolytes, renal function, LFTs, lipase, and urinalysis. Patient abdomen is negative for findings concerning for small bowel obstruction. The patient was reevaluated and reported that their symptoms were markedly improved. The patient is stable for discharge with outpatient follow- up. The patient is given follow-up and return instructions. The patient expressed understanding and agreed with the plan. The patient is discharged in stable condition. Critical care attestation.: If time is entered above; I have spent that time in minutes in the direct care of this critically ill patient, excluding procedure time. ED Disposition Clinical Impression: Acute LUQ pain, Abdominal pain, acute, epigastric Disposition: TO HOME OR SELFCARE Is pt being admited?: No Does the pt Need Aspirin: No Condition: Stable Instructions: Abdominal Pain (ED) Prescriptions: Acetaminophen [Tylenol] 1,000 mg PO Q6HR #20 tablet Omeprazole Magnesium [PriLOSEC Otc] 20 mg PO QDAY #14 tablet. Ondansetron [Zofran TAB] 4 mg PO Q8HR PRN #15 tablet PRN Reason: Nausea Referrals: PRIMARY CARE, [Primary Care Provider] - 3-5 Days Time of Disposition: 21:24
--- NOTE | 2017-02-24 | XRay Report ---
FINAL REPORT PROCEDURE: XR ABD SERIES W CXR 1V TECHNIQUE: Abdominal series complete, including supine and upright AP views of the abdomen and frontal chest. HISTORY: abd pain COMPARISON: No prior studies are available for comparison. FINDINGS: Heart: Normal. Mediastinum/Vessels: Normal. Lungs/Pleural space: 5 millimeter calcific density is noted in the right lower lung most likely representing a old healed granuloma. Bowel gas pattern: Intestinal gas is distributed predominantly in nondistended colon. Moderate degree of residual stool is noted.. Masses or calcifications: None. Bony structures: No acute osseous abnormality. Other: Surgical clips are identified in the right upper quadrant consistent with cholecystectomy.. IMPRESSION: Nonspecific intestinal gas pattern with moderate amount of residual stool..
== END 2017-02-23 23:16 | disposition home or self-care (01) ==
LOC: ED 19:32
DX: R10.11 Right upper quadrant pain (principal); R10.13 Epigastric pain; E11.9 Type 2 diabetes mellitus without complications; F20.9 Schizophrenia, unspecified; C50.919 Malignant neoplasm of unspecified site of unspecified female breast; C79.60 Secondary malignant neoplasm of unspecified ovary
CPT/HCPCS: 74022; 99283; Q0162

== ENCOUNTER 2017-02-24 01:47 | Emergency (ER) | payer SELFPAY ==
[2017-02-24 02:18] VITALS: BP 119/73
== END 2017-02-24 05:21 | disposition left against medical advice (07) ==
LOC: ED 01:47
DX: M54.30 Sciatica, unspecified side (principal); Z53.21 Procedure and treatment not carried out due to patient leaving prior to being seen by health care provider

== ENCOUNTER 2017-02-24 07:49 | Emergency (ER) | payer SELFPAY ==
[2017-02-24 07:58] VITALS: BP 118/64
--- NOTE | 2017-02-24 11:46 | Emergency Department Report ---
ED General Adult HPI - General Chief complaint: Pain General Stated complaint: DIABETIC PAINS Time Seen by Provider: 02/24/17 11:38 Source: patient Mode of arrival: Ambulatory Limitations: Physical Limitation - History of Present Illness Initial comments: She has a 46-year-old female past medical history of diabetes who presents with lower leg pain. Patient states lower leg tenderness but going on for the last 3 hours. She states is a 2 out 10 and radiates up her leg has a dull electrical type pain. She says nothing makes it worse or nothing makes it better. Patient is not suicidal or homicidal. Patient has had numerous visits to the ER in last couple days. Patient states that she would like to see a licensed master social worker to go back to her place. Patient denies any chest pain shortness of breath or having any nausea or vomiting. - Related Data Previous Rx's Medication Instructions Recorded Last Taken Type Menthol [Gold Lora Medicated Foot] 283 gm TP QDAY #1 powder 02/15/17 Unknown Rx Tolnaftate [Tinactin] 150 gm TP QDAY #1 spray 02/15/17 Unknown Rx Ibuprofen [Motrin 800 MG tab] 800 mg PO Q8HR PRN #20 tablet 02/16/17 Unknown Rx Ondansetron [Zofran ODT TAB] 8 mg PO Q8H #20 tab.rapdis 02/16/17 Unknown Rx Sulfamethoxazole/Trimethoprim 1 each PO BID #14 tablet 02/16/17 Unknown Rx [Bactrim DS TAB] Acetaminophen [Tylenol] 1,000 mg PO Q6HR #20 tablet 02/23/17 Unknown Rx Omeprazole Magnesium [PriLOSEC Otc] 20 mg PO QDAY #14 tablet. 02/23/17 Unknown Rx Ondansetron [Zofran TAB] 4 mg PO Q8HR PRN #15 tablet 02/23/17 Unknown Rx Allergies Allergy/AdvReac Type Severity Reaction Status Date / Time phenobarbital Allergy Hives Verified 02/20/17 02:09 ED Review of Systems ROS: Stated complaint: DIABETIC PAINS Other details as noted in HPI Constitutional: denies: chills, fever Eyes: denies: eye pain, eye discharge, vision change ENT: denies: ear pain, throat pain Respiratory: denies: cough, shortness of breath, wheezing Cardiovascular: denies: chest pain, palpitations Endocrine: no symptoms reported Gastrointestinal: denies: abdominal pain, nausea, diarrhea Genitourinary: denies: urgency, dysuria, discharge Musculoskeletal: other. denies: back pain, joint swelling, arthralgia Skin: denies: rash, lesions Neurological: other (neuropathy). denies: headache, weakness, paresthesias Psychiatric: denies: anxiety, depression Hematological/Lymphatic: denies: easy bleeding, easy bruising ED Past Medical Hx - Past Medical History Hx Diabetes: Yes Hx Psychiatric Treatment: Yes (schizophrenia) Additional medical history: diabetic neuropathy - Surgical History Hx Cholecystectomy: Yes Additional Surgical History: Breast CA, Ovarian CA. Left Knee, Brain - Social History Smoking Status: Current Every Day Smoker Substance Use Type: None - Medications Home Medications: Home Medications Medication Instructions Recorded Confirmed Last Taken Type Menthol [Gold Lora Medicated Foot] 283 gm TP QDAY #1 powder 02/15/17 Unknown Rx Tolnaftate [Tinactin] 150 gm TP QDAY #1 spray 02/15/17 Unknown Rx Ibuprofen [Motrin 800 MG tab] 800 mg PO Q8HR PRN #20 tablet 02/16/17 Unknown Rx Ondansetron [Zofran ODT TAB] 8 mg PO Q8H #20 tab.rapdis 02/16/17 Unknown Rx Sulfamethoxazole/Trimethoprim 1 each PO BID #14 tablet 02/16/17 Unknown Rx [Bactrim DS TAB] Acetaminophen [Tylenol] 1,000 mg PO Q6HR #20 tablet 02/23/17 Unknown Rx Omeprazole Magnesium [PriLOSEC Otc] 20 mg PO QDAY #14 tablet.dr 02/23/17 Unknown Rx Ondansetron [Zofran TAB] 4 mg PO Q8HR PRN #15 tablet 02/23/17 Unknown Rx ED Physical Exam - General Limitations: Physical Limitation General appearance: alert, in no apparent distress - Head Head exam: Present: atraumatic, normocephalic - Eye Eye exam: Present: normal appearance - ENT ENT exam: Present: mucous membranes moist - Neck Neck exam: Present: normal inspection - Respiratory Respiratory exam: Present: normal lung sounds bilaterally. Absent: respiratory distress - Cardiovascular Cardiovascular Exam: Present: regular rate, normal rhythm. Absent: systolic murmur, diastolic murmur, rubs, gallop - GI/Abdominal GI/Abdominal exam: Present: soft, normal bowel sounds - Extremities Exam Extremities exam: Present: normal inspection - Back Exam Back exam: Present: normal inspection - Neurological Exam Neurological exam: Present: alert, oriented X3 - Psychiatric Psychiatric exam: Present: normal affect, normal mood - Skin Skin exam: Present: warm, dry, intact, normal color. Absent: rash ED Course Vital Signs 02/24/17 07:54 Temperature 98 F Pulse Rate 76 Respiratory 18 Rate Blood Pressure 118/64 O2 Sat by Pulse 99 Oximetry ED Medical Decision Making - Medical Decision Making Medical diagnosis: Diabetic neuropathy Differential medical diagnosis: Myalgia, her glycemia I'll give point of care glucose and PATIENT NAPROXEN AND gabapentin she is feeling better after oral medication I will send patient home. The patient presents plan additional verbal discharge structures were given long term care social worker were called for patient and they arranged patient's transportation. Critical care attestation.: If time is entered above; I have spent that time in minutes in the direct care of this critically ill patient, excluding procedure time. ED Disposition Clinical Impression: Peripheral neuropathic pain, Medical non-compliance Chronic foot pain Qualifiers: Laterality: unspecified laterality Qualified Code(s): M79.673 - Pain in unspecified foot; G89.29 - Other chronic pain; G89.29 - Other chronic pain Disposition: DC-01 TO HOME OR SELFCARE Is pt being admited?: No Does the pt Need Aspirin: No Condition: Stable Instructions: Arthralgia (ED) Referrals: IZZY SHAY MD [Staff Physician] - 3-5 Days
[2017-02-24] MEDS ORDERED: NEURONTIN PO ONE (11:54)
[2017-02-24] MEDS ORDERED: NAPROSYN PO ONE (13:00)
== END 2017-02-24 13:42 | disposition home or self-care (01) ==
LOC: ED 07:49
DX: E11.40 Type 2 diabetes mellitus with diabetic neuropathy, unspecified (principal); G62.89 Other specified polyneuropathies; G89.29 Other chronic pain; F20.9 Schizophrenia, unspecified; C50.919 Malignant neoplasm of unspecified site of unspecified female breast; F17.200 Nicotine dependence, unspecified, uncomplicated; Z88.8 Allergy status to other drugs, medicaments and biological substances
CPT/HCPCS: 82962; 99283

== ENCOUNTER 2017-02-27 18:45 | Emergency (ER) | payer MEDICAID, OTHER ==
[2017-02-27 19:44] VITALS: BP 126/68
--- NOTE | 2017-02-28 04:42 | Emergency Department Report ---
ED Extremity Problem HPI - General Chief complaint: Extremity Problem,Nontraumatic Stated complaint: DIABETIC NERVE PAIN Time Seen by Provider: 02/28/17 04:05 Source: patient Mode of arrival: Ambulatory Limitations: No Limitations - History of Present Illness Initial comments: 46-year-old female past medical history schizophrenia, diabetes, diabetic neuropathy, athlete's foot, plantar fasciitis presents with chronic foot pain to the ED. When I went to examine patient she was sleeping on stretcher. When I attempt to speak to her she told me to go away. I gave patient approximately 30 minutes before I reapproached her. When I asked her why she came to the ER she said that she did not want the outside because it is cold and she is currently homeless and has chronic foot pain. I asked the patient if she is here for an emergency and she stated that she is not but that she simply did not want to be outside she does not have a current place to go. Patient denies fevers or chills, dysuria, increased urinary frequency, nausea or vomiting or any direct trauma to her feet. Patient is agitated and although is responding to my questions is somewhat uncooperative. Patient appears disheveled. She is arousable and oriented to place and time and person and ambulatory as she got up to go to the bathroom more than once as I observed while she has been in the ED. Patient is asking to stay in the ER until the morning and then states she wishes to leave. States she is on her feet and walks for prolonged periods of time. Patient noticeably has multiple risk bands on her wrists from different emergency departments including [facility] Severity scale (0 -10): 0 Worsens with: walking Associated Symptoms: denies other symptoms - Related Data Previous Rx's Medication Instructions Recorded Last Taken Type Menthol [Gold Lora Medicated Foot] 283 gm TP QDAY #1 powder 02/15/17 Unknown Rx Tolnaftate [Tinactin] 150 gm TP QDAY #1 spray 02/15/17 Unknown Rx Ibuprofen [Motrin 800 MG tab] 800 mg PO Q8HR PRN #20 tablet 02/16/17 Unknown Rx Ondansetron [Zofran ODT TAB] 8 mg PO Q8H #20 tab.rapdis 02/16/17 Unknown Rx Sulfamethoxazole/Trimethoprim 1 each PO BID #14 tablet 02/16/17 Unknown Rx [Bactrim DS TAB] Acetaminophen [Tylenol] 1,000 mg PO Q6HR #20 tablet 02/23/17 Unknown Rx Omeprazole Magnesium [PriLOSEC Otc] 20 mg PO QDAY #14 tablet. 02/23/17 Unknown Rx Ondansetron [Zofran TAB] 4 mg PO Q8HR PRN #15 tablet 02/23/17 Unknown Rx Allergies Allergy/AdvReac Type Severity Reaction Status Date / Time phenobarbital Allergy Hives Verified 02/20/17 02:09 ED Review of Systems ROS: Stated complaint: DIABETIC NERVE PAIN Other details as noted in HPI Constitutional: denies: chills, fever Eyes: denies: eye pain, eye discharge, vision change ENT: denies: ear pain, throat pain Respiratory: denies: cough, shortness of breath, wheezing Cardiovascular: denies: chest pain, palpitations Endocrine: no symptoms reported Gastrointestinal: denies: abdominal pain, nausea, diarrhea Genitourinary: denies: urgency, dysuria, discharge Musculoskeletal: as per HPI (chronic foot pain). denies: back pain, joint swelling, arthralgia Skin: denies: rash, lesions Neurological: denies: headache, weakness, paresthesias Psychiatric: denies: anxiety, depression Hematological/Lymphatic: denies: easy bleeding, easy bruising ED Past Medical Hx - Past Medical History Previous Medical History?: Yes Hx Diabetes: Yes Hx Psychiatric Treatment: Yes (schizophrenia) Additional medical history: diabetic neuropathy - Surgical History Past Surgical History?: Yes Hx Cholecystectomy: Yes Additional Surgical History: Breast CA, Ovarian CA. Left Knee, Brain - Social History Smoking Status: Current Every Day Smoker - Medications Home Medications: Home Medications Medication Instructions Recorded Confirmed Last Taken Type Menthol [Gold Lora Medicated Foot] 283 gm TP QDAY #1 powder 02/15/17 Unknown Rx Tolnaftate [Tinactin] 150 gm TP QDAY #1 spray 02/15/17 Unknown Rx Ibuprofen [Motrin 800 MG tab] 800 mg PO Q8HR PRN #20 tablet 02/16/17 Unknown Rx Ondansetron [Zofran ODT TAB] 8 mg PO Q8H #20 tab.rapdis 02/16/17 Unknown Rx Sulfamethoxazole/Trimethoprim 1 each PO BID #14 tablet 02/16/17 Unknown Rx [Bactrim DS TAB] Acetaminophen [Tylenol] 1,000 mg PO Q6HR #20 tablet 02/23/17 Unknown Rx Omeprazole Magnesium [PriLOSEC Otc] 20 mg PO QDAY #14 tablet. 02/23/17 Unknown Rx Ondansetron [Zofran TAB] 4 mg PO Q8HR PRN #15 tablet 02/23/17 Unknown Rx ED Physical Exam - General Limitations: No Limitations General appearance: alert, in no apparent distress, other (disheveled appearance with strong body odor) - Head Head exam: Present: atraumatic, normocephalic - Eye Eye exam: Present: normal appearance - ENT ENT exam: Present: mucous membranes moist - Neck Neck exam: Present: normal inspection - Respiratory Respiratory exam: Present: normal lung sounds bilaterally. Absent: respiratory distress - Cardiovascular Cardiovascular Exam: Present: regular rate, normal rhythm. Absent: systolic murmur, diastolic murmur, rubs, gallop - GI/Abdominal GI/Abdominal exam: Present: soft, normal bowel sounds - Extremities Exam Extremities exam: Present: normal inspection - Back Exam Back exam: Present: normal inspection - Neurological Exam Neurological exam: Present: alert, oriented X3, CN II-XII intact, normal gait - Psychiatric Psychiatric exam: Present: normal affect, normal mood - Skin Skin exam: Present: warm, dry, intact, normal color. Absent: rash ED Course Vital Signs 02/27/17 19:38 Temperature 98 F Pulse Rate 92 H Respiratory 18 Rate Blood Pressure 126/68 [Right] O2 Sat by Pulse 100 Oximetry ED Medical Decision Making - Medical Decision Making A/P: Homelessness, chronic foot pain, chronic plantar fasciitis 1-I offered patient a list of shelters. Patient stated she was not interested. 2- pt given info for low cost medical clinics Critical care attestation.: If time is entered above; I have spent that time in minutes in the direct care of this critically ill patient, excluding procedure time. ED Disposition Clinical Impression: Homelessness Disposition: DC-01 TO HOME OR SELFCARE Is pt being admited?: No Does the pt Need Aspirin: No Condition: Stable Referrals: [facility] [Outside] - 3-5 Days Time of Disposition: 04:44
== END 2017-02-28 06:01 | disposition home or self-care (01) ==
LOC: ED 18:45
DX: E11.40 Type 2 diabetes mellitus with diabetic neuropathy, unspecified (principal); F17.200 Nicotine dependence, unspecified, uncomplicated; Z88.8 Allergy status to other drugs, medicaments and biological substances
CPT/HCPCS: 99282